=== PATIENT | male | born 1970 | race Caucasian/White ===

== ENCOUNTER 2022-03-07 11:56 | Outpatient (CLI) | payer OTHER, SELFPAY ==
--- NOTE | ~2022-03-07 | CT_ITS ---
EXAMINATION: CT diagnostic chest wo con DATE: 03/07/2022 12:17 INDICATION: Pulmonary nodules TECHNIQUE: Computed tomography (CT) of the chest was performed without intravenous contrast. The dose -length product (DLP) was 77.65 mGy-cm. Automated exposure control and iterative reconstruction techn ique were employed. COMPARISON: None FINDINGS: There is mild emphysema. There are scattered small nodules throughout the lungs, the larges t of which measures 5 mm in the left lower lobe. The lungs are free of acute opacities. No pleural ef fusion or pneumothorax. No pathologically enlarged thoracic lymph nodes are identified. The heart siz e is normal. The gallbladder is surgically absent. There appear to be surgical changes in the stomach . IMPRESSION: 1. Pulmonary nodules measuring up to 5 mm. Comparison with any available prior imaging would be helpf ul. If available, follow-up CT in 12 months should be considered. Reviewed, dictated and finalized at location B. IMPRESSION: 1. Pulmonary nodules measuring up to 5 mm. Comparison with any available prior imaging would be helpful. If available, follow-up CT in 12 months should be con sidered.
== END 2022-03-07 11:57 | disposition home or self-care (01) ==
LOC: CHSIMG 12:01
PROVIDERS: PCP Family Medicine; Visit Provider Registered Nurse
DX: R91.8 Other nonspecific abnormal finding of lung field (principal)
CPT/HCPCS: 71250